=== PATIENT | male | born 1980 | race American Indian/Alaskan Native ===

== ENCOUNTER 2017-01-11 01:20 | Emergency (ER) | payer OTHER ==
[2017-01-11] MEDS ORDERED: Tetanus/Diphtheria Toxoids 0.5 ml Syringe IM ONE (01:37)
--- NOTE | 2017-01-11 01:38 | C.PDOC ---
History Of Present Illness 36 Y/O MALE PRESENTS TO ED WITH C/O R HAND INJURY AT WORK PRIOR TO ARRIVAL. PT STATES HAND ACCIDENTALLY CRUSHED. ALSO C/O PAIN TO RIGHT 2ND AND 3RD FINGER WITH ASSOCIATED CUTS. PATIENT IS RIGHT HANDED, UNKNOWN LAST TETANUS. Time Seen by Provider: 01/11/17 01:37 Chief Complaint (Nursing): Finger,Hand,&Wrist History Per: Patient History/Exam Limitations: no limitations Onset/Duration Of Symptoms: Hrs Current Symptoms Are (Timing): Still Present Recent travel outside of the [place]: No Past Medical History Reviewed: Historical Data, Nursing Documentation, Vital Signs Vital Signs: Last Vital Signs Temp 97.7 F 01/11/17 01:23 Pulse 86 01/11/17 01:23 Resp 18 01/11/17 01:23 BP 124/85 01/11/17 01:23 Pulse Ox 98 01/11/17 02:02 - Medical History PMH: No Chronic Diseases Family History: States: Unknown Family Hx - Social History Hx Alcohol Use: Yes Hx Substance Use: No - Immunization History Hx Tetanus Toxoid Vaccination: No Hx Influenza Vaccination: No Hx Pneumococcal Vaccination: No Review Of Systems Except As Marked, All Systems Reviewed And Found Negative. Musculoskeletal: Positive for: Hand Pain (RIGHT). Negative for: Arm Pain Skin: Negative for: Rash, Bruising Neurological: Negative for: Weakness, Numbness Physical Exam - Physical Exam Appears: Non-toxic, No Acute Distress Skin: Warm, Dry Head: Atraumatic, Normacephalic Extremity: Normal ROM, Capillary Refill (< 2 SEC. ), No Deformity, Other ( SWELLING R 2ND AND 3RD DIGITS - (2) 1.0 cm LAC OVER DORSAL PROXIMAL PHALANX OVER RIGHT 2ND AND 3RD FINGERS) Extremity: Bilateral: Normal Color And Temperature Pulses: Left Radial: Normal, Right Radial: Normal Neurological/Psych: Oriented x3, Normal Motor, Normal Sensation ED Course And Treatment O2 Sat by Pulse Oximetry: 98 (RA) Pulse Ox Interpretation: Normal Progress - Re-Evaluation Re-evaluation Note: 01/11/17 01:37 MOTRIN, TETANUS VACCINATION, R HAND X-RAY ORDERED 01/11/17 02:08 STERISTRIP APPLIED TO LAC 2ND R FINGER BY RN, SPLINT APPLIED - Data Reviewed Data Reviewed: Diagnostic imaging Disposition Counseled Patient/Family Regarding: Studies Performed, Diagnosis, Need For Followup - Disposition Referrals: [facility] [Outside] [facility] [Outside] John Padron MD [Staff Provider] - Disposition: HOME/ ROUTINE Disposition Time: 02:09 Condition: IMPROVED Instructions: Steristrips (ED) - Clinical Impression Clinical Impression: Finger laceration, Finger contusion - Scribe Statement The provider has reviewed the documentation as recorded by the Zeeshanibe Sean Reynaga Provider Scribe Attestation: All medical record entries made by the Scribe were at my direction and personally dictated by me. I have reviewed the chart and agree that the record accurately reflects my personal performance of the history, physical exam, medical decision making, and the department course for this patient. I have also personally directed, reviewed, and agree with the discharge instructions and disposition. Orthopedic Care Application Of:: Finger Splint (r 2nd finger)
[2017-01-11 02:37] VITALS: BP 127/84; PULSE 83; RESP 16; TEMP 98; O2SAT 96
--- NOTE | 2017-01-11 08:21 | RAD ---
PROCEDURE: Right Hand Radiographs. HISTORY: trauma COMPARISON: None available. FINDINGS: BONES: No acute displaced fracture. JOINTS: No dislocation. SOFT TISSUES: Unremarkable. No evidence of radiopaque foreign body. OTHER FINDINGS: None. IMPRESSION: No acute displaced fracture, dislocation, or significant joint effusion identified. If symptoms persist, or if there is continued clinical concern, x-ray follow-up in 7-10 days should be considered.
== END 2017-01-11 02:37 | disposition home or self-care (01) ==
LOC: C.ER 01:20
DX: S61.210A Laceration without foreign body of right index finger without damage to nail, initial encounter (principal); S60.031A Contusion of right middle finger without damage to nail, initial encounter; W31.9XXA Contact with unspecified machinery, initial encounter; Y93.89 Activity, other specified; Y92.89 Other specified places as the place of occurrence of the external cause; Y99.0 Civilian activity done for income or pay

== ENCOUNTER 2017-04-20 01:55 | Emergency (ER) | payer OTHER, BC ==
--- NOTE | 2017-04-20 02:55 | C.PDOC ---
History Of Present Illness 36 y/o male presents to ED with left hand pain. Patient state he works for [employer] and while at work was accidentally hit on dorsum of left hand with sledge hammer. Patient denies change in sensation, numbness, tingling or any other complaints at this time. - HPI Time Seen by Provider: 04/20/17 02:47 Chief Complaint (Nursing): Trauma History Per: Patient History/Exam Limitations: no limitations Onset/Duration Of Symptoms: Hrs Location Of Injury: Left: Hand Past Medical History Reviewed: Historical Data, Nursing Documentation, Vital Signs Vital Signs: Last Vital Signs Temp 98.1 F 04/20/17 04:54 Pulse 68 04/20/17 04:54 Resp 18 04/20/17 04:54 BP 140/87 04/20/17 04:54 Pulse Ox 96 04/20/17 04:54 Family History: States: No Known Family Hx - Social History Hx Alcohol Use: Yes Hx Substance Use: No - Immunization History Hx Tetanus Toxoid Vaccination: No Hx Influenza Vaccination: No Hx Pneumococcal Vaccination: No Review Of Systems Musculoskeletal: Positive for: Hand Pain. Negative for: Arm Pain Skin: Negative for: Rash Neurological: Negative for: Weakness, Numbness Physical Exam - Physical Exam Appears: Non-toxic, No Acute Distress Skin: Warm Head: Normacephalic Oral Mucosa: Moist Chest: Symmetrical Extremity: Capillary Refill (<2 seconds), No Deformity, Swelling (Mild swelling to left hand) Pulses: Left Radial: Normal, Right Radial: Normal Neurological/Psych: Oriented x3, Normal Speech, Normal Cognition, Normal Motor, Normal Sensation ED Course And Treatment O2 Sat by Pulse Oximetry: 99 (RA) Pulse Ox Interpretation: Normal - Other Rad left hand X-Ray: Interpreted by Me, Viewed By Me Interpretation: no fx noted Medical Decision Making Medical Decision Making: pt hit by sledgehammer accidentally, no fx noted, declined analgesic. Disposition Counseled Patient/Family Regarding: Studies Performed, Diagnosis, Need For Followup - Disposition Referrals: Kathy Lind MD [Staff Provider] - Disposition: HOME/ ROUTINE Disposition Time: 04:50 Condition: STABLE Additional Instructions: Apply cold compress to hand several times a day to reduce swelling. Tylenol or Motrin for pain if needed. Follow up with Hand specialist if pain persists. Instructions: Contusion in Adults (ED) Forms: [id number] (Maldivian), General Discharge Instructions - Clinical Impression Clinical Impression: Hand injury - Scribe Statement The provider has reviewed the documentation as recorded by the Scribpetra Harper All medical record entries made by the Scribe were at my direction and personally dictated by me. I have reviewed the chart and agree that the record accurately reflects my personal performance of the history, physical exam, medical decision making, and the department course for this patient. I have also personally directed, reviewed, and agree with the discharge instructions and disposition.
[2017-04-20 04:54] VITALS: BP 140/87; PULSE 68; RESP 18; TEMP 98.1
[2017-04-20 07:17] VITALS: O2SAT 99
--- NOTE | 2017-04-20 09:06 | RAD ---
PROCEDURE: Left Hand Radiographs. HISTORY: trauma COMPARISON: None. FINDINGS: BONES: A longitudinal lucency is appreciated at the distal phalanx left long finger potentially affecting the distal phalanx side of the distal interphalangeal joint and suspicious for an acute fracture. There is a very limited possibly this represents a it bifid distal phalanx, a congenital deformity, but this is not favored. JOINTS: Potential intra-articular fracture DIP joint. SOFT TISSUES: Limited local soft tissue edema in the distal portion of the left long finger is suggested. OTHER FINDINGS: None. IMPRESSION: Longitudinal articular fracture distal phalanx left long finger is suspected and favored over bifid distal phalanx. Further clinical correlation advised to the remaining stones of the left hand appear intact and unremarkable. (ER PA review is assigned to this case to evaluate discrepancy with initial interpretation.)
== END 2017-04-20 04:55 | disposition home or self-care (01) ==
LOC: C.ER 01:55
DX: S69.92XA Unspecified injury of left wrist, hand and finger(s), initial encounter (principal); W22.8XXA Striking against or struck by other objects, initial encounter; Y92.89 Other specified places as the place of occurrence of the external cause; Y99.0 Civilian activity done for income or pay